=== PATIENT | male | born 1980 | race American Indian/Alaskan Native ===

== ENCOUNTER 2017-12-10 18:41 | Emergency (ER) | payer SELFPAY ==
[2017-12-10 19:53] VITALS: BP 126/77
--- NOTE | 2017-12-11 01:48 | Emergency Department Report ---
- General Chief complaint: Skin/Abscess/Foreign Body Stated complaint: NECK PAIN Time Seen by Provider: 12/11/17 01:43 Source: patient Mode of arrival: Ambulatory Limitations: No Limitations - History of Present Illness Initial comments: 37-year-old -[place] male presents to the emergency room for complaint of right neck pain. Patient reports that he has a ball or abscess to his right side of his neck. Patient states that he has been there for 2 years. Patient reports now is starting to have pain. Patient denies any fever no chills no nausea no vomiting. Patient only admits to a past medical history of a boil to the right side of the neck. Patient reports he didn't take an [id number] BC powder. MD complaint: abscess/boil -: year(s) (2) Location: neck Severity scale (0 -10): 10 Quality: aching Consistency: constant Improves with: medication Worsens with: palpation, movement Associated symptoms: denies other symptoms Treatments Prior to Arrival: other ([id number] pain medication) - Related Data Previous Rx's Medication Instructions Recorded Last Taken Type Ibuprofen [Motrin 600 MG tab] 600 mg PO Q8H PRN #20 tablet 12/11/17 Unknown Rx Sulfamethoxazole/Trimethoprim 1 each PO BID #20 tablet 12/11/17 Unknown Rx [Bactrim DS TAB] Allergies Allergy/AdvReac Type Severity Reaction Status Date / Time No Known Allergies Allergy Unverified 11/29/15 17:40 Abscess Boil HPI - HPI Chief Complaint: Skin/Abscess/Foreign Body Stated Complaint: NECK PAIN Time Seen by Provider: 12/11/17 01:43 Home Medications: Previous Rx's Medication Instructions Recorded Last Taken Type Ibuprofen [Motrin 600 MG tab] 600 mg PO Q8H PRN #20 tablet 12/11/17 Unknown Rx Sulfamethoxazole/Trimethoprim 1 each PO BID #20 tablet 12/11/17 Unknown Rx [Bactrim DS TAB] Allergies/Adverse Reactions: Allergies Allergy/AdvReac Type Severity Reaction Status Date / Time No Known Allergies Allergy Unverified 11/29/15 17:40 ED Review of Systems ROS: Stated complaint: NECK PAIN Other details as noted in HPI Constitutional: denies: chills, fever Eyes: denies: eye pain, eye discharge, vision change Gastrointestinal: denies: abdominal pain, nausea, diarrhea Skin: lesions (right side of neck) Neurological: headache Psychiatric: denies: anxiety, depression ED Past Medical Hx - Past Medical History Previous Medical History?: No - Surgical History Past Surgical History?: No - Social History Smoking Status: Current Every Day Smoker Substance Use Type: Alcohol - Medications Home Medications: Home Medications Medication Instructions Recorded Confirmed Last Taken Type Ibuprofen [Motrin 600 MG tab] 600 mg PO Q8H PRN #20 tablet 12/11/17 Unknown Rx Sulfamethoxazole/Trimethoprim 1 each PO BID #20 tablet 12/11/17 Unknown Rx [Bactrim DS TAB] ED Physical Exam - General Limitations: No Limitations General appearance: alert, in no apparent distress - Head Head exam: Present: atraumatic, normocephalic - Eye Eye exam: Present: EOMI - ENT ENT exam: Present: mucous membranes moist - Neck Neck exam: Present: tenderness (right side of neck) - Neurological Exam Neurological exam: Present: alert, oriented X3 - Psychiatric Psychiatric exam: Present: normal affect, normal mood - Expanded Skin Exam Expanded Type of lesion: Present: abscess Distribution of rash: neck (right side) Description of rash: Present: size (off ball), tenderness. Absent: erythematous , indurated ED Course Vital Signs 12/10/17 19:50 Temperature 97.6 F Pulse Rate 79 Respiratory 17 Rate Blood Pressure 126/77 O2 Sat by Pulse 100 Oximetry ED Medical Decision Making - Medical Decision Making Patient has been evaluated by this provider fast track. Patient has a right side abscess to the neck. We'll place patient on ibuprofen and Bactrim. Patient is to follow-up with primary care provider if symptoms persist or gets worse. Critical care attestation.: If time is entered above; I have spent that time in minutes in the direct care of this critically ill patient, excluding procedure time. ED Disposition Clinical Impression: Abscess Disposition: DC-01 TO HOME OR SELFCARE Is pt being admited?: No Does the pt Need Aspirin: No Condition: Stable Instructions: Abscess (ED) Additional Instructions: Please complete antibiotics as prescribed. Please take pain medication as needed. If symptoms persist or gets worse please follow up with her primary care provider. Prescriptions: Ibuprofen [Motrin 600 MG tab] 600 mg PO Q8H PRN #20 tablet PRN Reason: Pain Sulfamethoxazole/Trimethoprim [Bactrim DS TAB] 1 each PO BID #20 tablet Referrals: PRIMARY CARE, [Primary Care Provider] - 3-5 Days [facility] [Provider Group] - 3-5 Days Forms: Work/School Release Form(ED)
== END 2017-12-11 02:18 | disposition home or self-care (01) ==
LOC: ED 18:41
DX: L02.11 Cutaneous abscess of neck (principal); F17.200 Nicotine dependence, unspecified, uncomplicated
CPT/HCPCS: 99282

== ENCOUNTER 2020-01-02 21:37 | Emergency (ER) | payer SELFPAY ==
[2020-01-02] MEDS ORDERED: SODIUM CHLORIDE 0.9% 1000 ML 1,000 ML IV ONE ×2 (21:53)
--- NOTE | 2020-01-02 21:53 | Emergency Department Report ---
History of Present Illness - General Chief Complaint: Altered Mental Status Stated Complaint: UNRESPONSIVE/AMS Time Seen by Provider: 01/02/20 21:51 Source: patient, EMS, old records reviewed Mode of arrival: Stretcher Limitations: Altered Mental Status - History of Present Illness Initial Comments: cc: "meth" HPI: This is a 39-year-old male with history of methamphetamine abuse who presents with altered mental status. Friends contacted EMS because he was acting "funny". Patient did not use methamphetamine today. Patient gives limited history. EMS contacted for altered mental status. MD Complaint: accidental overdose -: This afternoon Context: Accidental Overdose: wanted to get high Treatments Prior to Arrival: other (IV placement oxygen nasal cannula) - Related Data Previous Rx's Medication Instructions Recorded Last Taken Type Ibuprofen [Motrin 600 MG tab] 600 mg PO Q8H PRN #20 tablet 12/11/17 Unknown Rx Sulfamethoxazole/Trimethoprim 1 each PO BID #20 tablet 12/11/17 Unknown Rx [Bactrim DS TAB] Allergies Allergy/AdvReac Type Severity Reaction Status Date / Time No Known Allergies Allergy Unverified 11/29/15 17:40 ED Review of Systems ROS: Stated complaint: UNRESPONSIVE/AMS Other details as noted in HPI Comment: Unobtainable due to pts medical conditions (Altered mental status) ED Past Medical Hx - Past Medical History Previous Medical History?: Yes Additional medical history: Meth abuse - Social History Smoking Status: Current Every Day Smoker Substance Use Type: Alcohol, Methamphetamines - Medications Home Medications: Home Medications Medication Instructions Recorded Confirmed Last Taken Type Ibuprofen [Motrin 600 MG tab] 600 mg PO Q8H PRN #20 tablet 12/11/17 Unknown Rx Sulfamethoxazole/Trimethoprim 1 each PO BID #20 tablet 12/11/17 Unknown Rx [Bactrim DS TAB] ED Physical Exam - General Limitations: Altered Mental Status General appearance: in no apparent distress, other (Patient protecting airway purposeful movement will not answer questions) - Head Head exam: Present: atraumatic, normocephalic - Eye Eye exam: Present: normal appearance, PERRL. Absent: scleral icterus, conjunctival injection - ENT ENT exam: Present: mucous membranes moist - Neck Neck exam: Present: normal inspection, full ROM - Respiratory Respiratory exam: Present: normal lung sounds bilaterally. Absent: respiratory distress, wheezes, rales, rhonchi - Cardiovascular Cardiovascular Exam: Present: regular rate, normal rhythm. Absent: systolic murmur, diastolic murmur, rubs, gallop - GI/Abdominal GI/Abdominal exam: Present: soft, normal bowel sounds. Absent: distended, tenderness, guarding, rebound - Rectal Rectal exam: Present: deferred - Extremities Exam Extremities exam: Present: normal inspection - Neurological Exam Neurological exam: Present: alert, oriented X3 - Psychiatric Psychiatric exam: Present: flat affect - Skin Skin exam: Present: warm, dry, intact, normal color. Absent: rash ED Course Vital Signs 01/02/20 01/03/20 01/03/20 21:47 00:59 01:30 Temperature 97.5 F L Pulse Rate 78 53 L 79 Respiratory 17 17 15 Rate Blood Pressure 101/60 127/85 144/88 [Right] O2 Sat by Pulse 98 98 99 Oximetry 01/03/20 03:46 Temperature Pulse Rate 63 Respiratory 18 Rate Blood Pressure 123/95 [Right] O2 Sat by Pulse 98 Oximetry ED Medical Decision Making - Medical Decision Making This is a 39-year-old male with a history of methamphetamine abuse who presents with altered mental status. He slept the majority of his ED encounter. Upon awakening he was apprised to find himself in the emergency department. He is alert and oriented x4. He is amatory without difficulty. He is discharged home. Critical care attestation.: If time is entered above; I have spent that time in minutes in the direct care of this critically ill patient, excluding procedure time. ED Disposition Clinical Impression: Methamphetamine intoxication Disposition: DC-01 TO HOME OR SELFCARE Is pt being admited?: No Does the pt Need Aspirin: No Condition: Stable Instructions: Polysubstance Abuse (ED) Referrals: JOEL DE LUNA MD [Staff Physician] - as needed
[2020-01-03 07:20] VITALS: BP 115/80
== END 2020-01-03 07:21 | disposition home or self-care (01) ==
LOC: ED 21:37
DX: F15.129 Other stimulant abuse with intoxication, unspecified (principal); F17.200 Nicotine dependence, unspecified, uncomplicated; Z79.899 Other long term (current) drug therapy
CPT/HCPCS: 96360; 99284; J7030

== ENCOUNTER 2020-09-30 21:29 | Emergency (ER) | payer SELFPAY ==
[2020-10-01 00:17] VITALS: BP 110/69
[2020-10-01] MEDS ORDERED: ASPIRIN 325 MG TAB PO ONE ×2 (00:49→03:50)
[2020-10-01] MEDS ORDERED: predniSONE 20 MG TAB PO ONE ×2 (00:49→03:50)
[2020-10-01 02:09] LABS: Basophils % (Auto) 0.5 % (0.0-1.8); Eosinophils # (Auto) 0.2 K/mm3 (0.0-0.4); Eosinophils % (Auto) 2.9 % (0.0-4.3); Hematocrit 37.3 % (35.5-45.6); Hemoglobin 12.5 gm/dl (11.8-15.2); Lymphocytes % (Auto) 31.4 % (13.4-35.0); Mean Corpuscular HGB Conc 34 % (32-34); Mean Corpuscular Volume 94 fl (84-94); Monocytes # (Auto) 0.5 K/mm3 (0.0-0.8); Monocytes % (Auto) 7.9 % (0.0-7.3); Platelet Count 283 K/mm3 (140-440); Red Blood Count 3.98 M/mm3 (3.65-5.03); Red Cell Distribution Width 12.5 % (13.2-15.2)
[2020-10-01 02:35] LABS: Alanine Aminotransferase 19 units/L (7-56); Albumin 3.9 g/dL (3.9-5); BUN/Creatinine Ratio 9; Blood Urea Nitrogen 8 mg/dL (9-20); Calcium 9.1 mg/dL (8.4-10.2); Hemolysis Index 4
== END 2020-10-01 06:48 | disposition home or self-care (01) ==
LOC: ED 21:29
DX: J06.9 Acute upper respiratory infection, unspecified (principal); J20.8 Acute bronchitis due to other specified organisms; J01.90 Acute sinusitis, unspecified; R07.89 Other chest pain; F17.200 Nicotine dependence, unspecified, uncomplicated; F12.90 Cannabis use, unspecified, uncomplicated; F15.10 Other stimulant abuse, uncomplicated; Z79.899 Other long term (current) drug therapy
CPT/HCPCS: 36415; 71045; 80053; 84484; 85025; 93005; 99284; J7512

== ENCOUNTER 2020-11-20 12:39 | Emergency (ER) | payer SELFPAY ==
[2020-11-20 13:28] VITALS: BP 115/63
--- NOTE | 2020-11-20 14:22 | Ultrasound Report ---
ULTRASOUND SCROTUM INDICATION / CLINICAL INFORMATION: TESTICLE PAIN AND SWELLING. COMPARISON: None available. FINDINGS -- RIGHT: TESTIS: Size = 4.9 x 1.7 x 2.9 cm. - Appearance: No significant abnormality. - Cyst / Mass: None. - Color Doppler Flow: No significant abnormality. EPIDIDYMIS: Small right epididymal cyst measuring up to 0.9 cm. HYDROCELE: Small VARICOCELE: None demonstrated. FINDINGS -- LEFT: TESTIS: Size = 4.9 x 2.4 x 3.0 cm. - Appearance: No significant abnormality. - Cyst / Mass: None. - Color Doppler Flow: No significant abnormality. EPIDIDYMIS: No significant abnormality. HYDROCELE: None. VARICOCELE: None demonstrated. ADDITIONAL FINDINGS: None. IMPRESSION: 1. No intratesticular mass or torsion. 2. Small right hydrocele. Signer Name: Hector Puckett DO Signed: 11/20/2020 2:18 PM Workstation Name: [id number]
[2020-11-20] MEDS ORDERED: LIDOCAINE-MPF (1%) 10 MG/1 ML VIAL 5 ML INFILTRATI ONE (16:40)
--- NOTE | 2020-11-20 16:44 | Emergency Department Report ---
ED Male HPI - General Chief complaint: Urogenital-Male Stated complaint: PAIN W/URINATION Time Seen by Provider: 11/20/20 15:46 Source: patient Mode of arrival: Ambulatory Limitations: No Limitations - History of Present Illness Initial comments: Patient is a 40-year-old male presents emergency room with complaints of intermittent bilateral testicular pain for 2 weeks. He states occasionally he has swelling but it comes and goes. He denies any pain currently. He states the swelling is improving. He states he has associated dysuria. He denies any fever, nausea, vomiting, diarrhea, abdominal pain, urinary retention, hematuria. Patient states he is sexually active without protection is concern for STDs. No past medical history. No allergies to medications. - Related Data Previous Rx's Medication Instructions Recorded Last Taken Type Ibuprofen [Motrin 600 MG tab] 600 mg PO Q8H PRN #20 tablet 12/11/17 Unknown Rx Sulfamethoxazole/Trimethoprim 1 each PO BID #20 tablet 12/11/17 Unknown Rx [Bactrim DS TAB] Azithromycin [Zithromax Z-SHANITA] 250 mg PO DAILY #6 tablet 10/01/20 Unknown Rx Benzonatate [Tessalon Perles] 100 mg PO Q8HR #30 capsule 10/01/20 Unknown Rx Cetirizine HCl [Zyrtec 10mg tab] 10 mg PO DAILY #30 tablet 10/01/20 Unknown Rx Ibuprofen [Motrin] 600 mg PO Q8H PRN #24 tablet 10/01/20 Unknown Rx predniSONE [Deltasone] 40 mg PO QDAY #10 tab 10/01/20 Unknown Rx Doxycycline Hyclate [Doxycycline 100 mg PO BID 7 Days #14 tab 11/20/20 Unknown Rx Hyclate TAB] Allergies Allergy/AdvReac Type Severity Reaction Status Date / Time No Known Allergies Allergy Verified 11/20/20 13:18 ED Review of Systems ROS: Stated complaint: PAIN W/URINATION Other details as noted in HPI Comment: All other systems reviewed and negative ED Past Medical Hx - Past Medical History Previous Medical History?: No Additional medical history: Meth abuse - Surgical History Past Surgical History?: No - Social History Smoking Status: Current Every Day Smoker Substance Use Type: Marijuana - Medications Home Medications: Home Medications Medication Instructions Recorded Confirmed Last Taken Type Ibuprofen [Motrin 600 MG tab] 600 mg PO Q8H PRN #20 tablet 12/11/17 Unknown Rx Sulfamethoxazole/Trimethoprim 1 each PO BID #20 tablet 12/11/17 Unknown Rx [Bactrim DS TAB] Azithromycin [Zithromax Z-SHANITA] 250 mg PO DAILY #6 tablet 10/01/20 Unknown Rx Benzonatate [Tessalon Perles] 100 mg PO Q8HR #30 capsule 10/01/20 Unknown Rx Cetirizine HCl [Zyrtec 10mg tab] 10 mg PO DAILY #30 tablet 10/01/20 Unknown Rx Ibuprofen [Motrin] 600 mg PO Q8H PRN #24 tablet 10/01/20 Unknown Rx predniSONE [Deltasone] 40 mg PO QDAY #10 tab 10/01/20 Unknown Rx Doxycycline Hyclate [Doxycycline 100 mg PO BID 7 Days #14 tab 11/20/20 Unknown Rx Hyclate TAB] ED Physical Exam - General Limitations: No Limitations General appearance: alert, in no apparent distress - Head Head exam: Present: atraumatic, normocephalic - Eye Eye exam: Present: normal appearance - ENT ENT exam: Present: mucous membranes moist - Respiratory Respiratory exam: Absent: respiratory distress, accessory muscle use - GI/Abdominal GI/Abdominal exam: Present: soft. Absent: distended, tenderness, guarding, rebound, rigid - exam: Present: other (assistant professor of education: Antonieta RN, no testicular ttp bilaterally, no scrotal edema, normal testicular lie, small inguinal LAD, no erythema, no increased warmth, normal cremasteric reflex, no blisters or lesions) - Neurological Exam Neurological exam: Present: alert, oriented X3 - Psychiatric Psychiatric exam: Present: normal affect, normal mood - Skin Skin exam: Present: warm, dry, intact ED Course Vital Signs 11/20/20 11/20/20 13:22 13:27 Temperature 97.9 F Pulse Rate 81 Respiratory 20 Rate Blood Pressure 115/63 O2 Sat by Pulse 100 Oximetry ED Medical Decision Making - Lab Data Lab Results 11/20/20 Range/Units Unknown Urine Color Yellow (Yellow) Urine Turbidity Clear (Clear) Urine pH 5.0 (5.0-7.0) Ur Specific [place] 1.017 (1.003-1.030) Urine Protein <15 mg/dl (Negative) mg/dL Urine Glucose (UA) Neg (Negative) mg/dL Urine Ketones Neg (Negative) mg/dL Urine Blood Neg (Negative) Urine Nitrite Neg (Negative) Urine Bilirubin Neg (Negative) Urine Urobilinogen 4.0 (<2.0) mg/dL Ur Leukocyte Esterase Neg (Negative) Urine WBC (Auto) 7.0 H (0.0-6.0) /HPF Urine RBC (Auto) 1.0 (0.0-6.0) /HPF Urine Mucus Few /HPF - Radiology Data Radiology results: report reviewed Ordering Physician: ROSALIO NEAL Date of Service: 11/20/20 Procedure(s): US testicular doppler comp Accession Number(s): [id number] cc: ROSALIO NEAL ULTRASOUND SCROTUM INDICATION / CLINICAL INFORMATION: TESTICLE PAIN AND SWELLING. COMPARISON: None available. FINDINGS -- RIGHT: TESTIS: Size = 4.9 x 1.7 x 2.9 cm. - Appearance: No significant abnormality. - Cyst / Mass: None. - Color Doppler Flow: No significant abnormality. EPIDIDYMIS: Small right epididymal cyst measuring up to 0.9 cm. HYDROCELE: Small VARICOCELE: None demonstrated. FINDINGS -- LEFT: TESTIS: Size = 4.9 x 2.4 x 3.0 cm. - Appearance: No significant abnormality. - Cyst / Mass: None. - Color Doppler Flow: No significant abnormality. EPIDIDYMIS: No significant abnormality. HYDROCELE: None. VARICOCELE: None demonstrated. ADDITIONAL FINDINGS: None. IMPRESSION: 1. No intratesticular mass or torsion. 2. Small right hydrocele. Signer Name: Hector Puckett DO Signed: 11/20/2020 2:18 PM Workstation Name: [id number] Transcribed By: ZAHRAA Dictated By: HECTOR PUCKETT DO Electronically Authenticated By: HECTOR PUCKETT DO Signed Date/Time: 11/20/20 141 DD/ 141 TD/TT: - Medical Decision Making Patient is a 40-year-old male presents emergency room with complaints of intermittent bilateral testicular pain for 2 weeks. He states occasionally he has swelling but it comes and goes. He denies any pain currently. He states the swelling is improving. He states he has associated dysuria. He denies any fever, nausea, vomiting, diarrhea, abdominal pain, urinary retention, hematuria. Patient states he is sexually active without protection is concern for STDs. No past medical history. No allergies to medications. Vitals are normal. On exam:assistant professor of education: KADE Fung, no testicular ttp bilaterally, no scrotal edema, normal testicular lie, small inguinal LAD, no erythema, no increased warmth, normal cremasteric reflex, no blisters or lesions. UA shows a small amount of white blood cells, no leukocyte esterase or nitrites. Testicular ultrasound: 1. No intratesticular mass or torsion. 2. Small right hydrocele. Symptoms likely related to an STD given that patient is having dysuria and had unprotected intercourse. Patient given ceftriaxone IM while emergency room. Given prescription for doxycycline. Discussed all results with patient and answered questions. Advised patient Please take medication as prescribed to completion. Please follow-up with the clinic or the health department in order to have a full STD panel. Please have any partners tested and treated as well. Avoid sexual intercourse. Return to emergency room for any new or worsening symptoms. Critical care attestation.: If time is entered above; I have spent that time in minutes in the direct care of this critically ill patient, excluding procedure time. ED Disposition Clinical Impression: Dysuria, Concern about STD in male without diagnosis Hydrocele Qualifiers: Hydrocele type: unspecified Qualified Code(s): N43.3 - Hydrocele, unspecified Disposition: DC-01 TO HOME OR SELFCARE Is pt being admited?: No Does the pt Need Aspirin: No Condition: Stable Instructions: Hydrocele, Adult, Dysuria Additional Instructions: Please take medication as prescribed to completion. Please follow-up with the clinic or the health department in order to have a full STD panel. Please have any partners tested and treated as well. Avoid sexual intercourse. Return to emergency room for any new or worsening symptoms. Prescriptions: Doxycycline Hyclate [Doxycycline Hyclate TAB] 100 mg PO BID 7 Days #14 tab Referrals: PRIMARY CARE, [Primary Care Provider] - 3-5 Days [facility] [Outside] - 3-5 Days Time of Disposition: 16:43 Print Language: TAJIK
[2020-11-20 16:56] LABS: Bilirubin,Urine NEG (Negative); Blood,Urine NEG (Negative); Color,Urine Yellow (Yellow); Mucus,Urine FEW /HPF; Protein,Urine <15 mg/dL mg/dL (Negative)
== END 2020-11-20 17:31 | disposition home or self-care (01) ==
LOC: ED 12:39
DX: N43.3 Hydrocele, unspecified (principal); R30.0 Dysuria; F17.200 Nicotine dependence, unspecified, uncomplicated; F12.90 Cannabis use, unspecified, uncomplicated; Z71.1 Person with feared health complaint in whom no diagnosis is made; Z79.899 Other long term (current) drug therapy
CPT/HCPCS: 81001; 93975; 96372; 99283; J0696